=== PATIENT | male | born 1995 | race Two or more races ===

== ENCOUNTER 2016-10-01 17:28 | Emergency (ER) | payer OTHER ==
[~2016-10-01] VITALS: Ht 167.6 cm; Wt 51.2 kg
[2016-10-01 18:22] LABS: HEMATOCRIT 41.6 % (38.0-50.0); MCH 30.3 PG (29.0-34.0); MCHC 34.4 G/DL (30.0-36.0); MCV 88.1 FL (86-99); MEAN PLAT.VOLUME 10.7 uM^3 (9.0-12.4); PLATELET COUNT 197 K/uL (156-360); RBC DIS.WIDTH-CV 11.8 % (11.8-14.6); RBC DIS.WIDTH-SD 37.4 % (39-53); RED BLOOD COUNT 4.72 M/uL (4.00-5.50)
[2016-10-01 18:33] LABS: CHLORIDE 104 mEq/L (99-109); POTASSIUM 4.1 mEq/L (3.7-5.4); SODIUM 140 mEq/L (136-147)
[2016-10-01 18:35] LABS: GLUCOSE 182 mg/dL (70-99)
[2016-10-01 18:37] LABS: ANION GAP 11 MEQ/L (2-14)
[2016-10-01 18:39] LABS: GFR ESTIMATE (CALCULATED) > 59 mL/min/
[2016-10-01 18:40] LABS: UREA NITROGEN (BUN) 17 mg/dL (9-23)
[2016-10-01 18:55] LABS: TROP-I INTERPRETATION NEGATIVE; TROPONIN-I < 0.01 ng/mL (0.0-0.30)
[2016-10-01 19:35] VITALS: BP 120/69
== END 2016-10-01 19:36 | disposition home or self-care (01) ==
LOC: EME 17:28
PROVIDERS: Emergency Medicine
DX: R55 Syncope and collapse (principal); S61.411A Laceration without foreign body of right hand, initial encounter; W26.0XXA Contact with knife, initial encounter; Y93.G1 Activity, food preparation and clean up; Z23 Encounter for immunization
CPT/HCPCS: 71020; 80048; 84484; 85027; 93005; 99281; 99284